=== PATIENT | female | born 1955 | race Caucasian/White ===

== ENCOUNTER 2017-02-22 15:45 | Emergency (ER) | payer BC ==
[~2017-02-22] VITALS: Ht 165.1 cm; Wt 57.9 kg
[2017-02-22 16:23] VITALS: BP 148/75
[2017-02-22] MEDS ORDERED: FLUORESCEIN OPHTHALMIC 1 MG STRIP LEFTEYE ONE (17:00)
[2017-02-22] MEDS ORDERED: PROPARACAINE OPHTH 0.5%, 15ML LEFTEYE ONE (17:00)
[2017-02-22 17:07] LABS: HEMATOCRIT 40.3 % (34.6-47.8); HEMOGLOBIN 13.4 g/dL (11.7-16.4); WHITE BLOOD COUNT 7.9 x10^3/uL (3.4-10)
[2017-02-22 17:17] LABS: BLOOD UREA NITROGEN 15 mg/dL (7-18)
[2017-02-22] MEDS ORDERED: FLUORESCEIN OPHTHALMIC 1 MG STRIP ONE (18:10)
[2017-02-22] MEDS ORDERED: PROPARACAINE OPHTH 0.5%, 15ML ONE (18:10)
[2017-02-22] MEDS ORDERED: AMLO5TAB2 PO (18:20)
[2017-02-22] MEDS ORDERED: LOSA100T6 PO (18:20)
== END 2017-02-22 18:36 | disposition home or self-care (01) ==
LOC: ED 18:30
DX: H11.32 Conjunctival hemorrhage, left eye (principal); I10 Essential (primary) hypertension; Z88.0 Allergy status to penicillin
CPT/HCPCS: 36415; 80048; 85025; 99284

== ENCOUNTER → 2019-09-03 | Outpatient (CLI) | payer BC, OTHER ==
[~2019-09-03] MED LIST: AMLO-150 PO; LOSA100T14 PO
== END | disposition home or self-care (01) ==
LOC: CVU 09:03
PROVIDERS: ATTEND Internal Medicine Cardiovascular Disease
DX: I08.3 Combined rheumatic disorders of mitral, aortic and tricuspid valves (principal); I10 Essential (primary) hypertension; Z85.43 Personal history of malignant neoplasm of ovary
CPT/HCPCS: 93306